=== PATIENT | female | born 1955 | race Caucasian/White ===

== ENCOUNTER 2017-08-07 12:12 | Emergency (ER) | payer BC ==
[~2017-08-07] VITALS: Ht 162.6 cm; Wt 97.1 kg
[2017-08-07 12:26] VITALS: BP 156/81
--- NOTE | 2017-08-07 12:31 | NUR ---
PT AMBULATED TO BED 11
--- NOTE | 2017-08-07 12:38 | NUR ---
REPORT GIVEN TO FREDDIE DEVINE
--- NOTE | 2017-08-07 12:40 | NUR ---
61 YO F WITH C/O INTERMITTIN HEADACHE X4 DAYS. +V/N, +LIGHT SENSITIVITY. PAIN 7/10 PRESSURE IN HEAD. PT STATES MILD EPIGASTRIC PAIN. BS ACTIVE X4. PT STATS SOB LAST NIGHT, LS CLEAR. PT TOOK X2 IMITREX, AND 1/2 TAB 5MG NORCO BEFORE ARRIVAL. DR VOGT MADE AWARE,WILL CONTINUE TO MONITOR
--- NOTE | 2017-08-07 12:45 | NUR ---
Patient being evaluated by physician at bedside.
[2017-08-07] MEDS ORDERED: KETOROLAC 60 MG/2 ML VIAL IM ONE (12:55)
[2017-08-07] MEDS ORDERED: METOCLOPRAMIDE 10 MG/2 ML INJ VIAL IM ONE (12:55)
--- NOTE | 2017-08-07 13:14 | NUR ---
MEDICATED ORDERED, WILL MONITOR FOR ANY ADVERSE SIDE EFFECTS.
[2017-08-07 13:44] VITALS: BP 149/74
--- NOTE | 2017-08-07 13:46 | NUR ---
Patient discharged with v/s stable. Written and verbal after care instructions given and explained. Patient alert, oriented and verbalized understanding of instructions. Ambulatory with steady gait. All questions addressed prior to discharge. ID band removed. Patient advised to follow up with PMD. Rx of REGLAN given. Patient educated on indication of medication including possible reaction and side effects. Opportunity to ask questions provided and answered.
== END 2017-08-07 13:46 | disposition home or self-care (01) ==
LOC: MED 12:12
DX: G43.909 Migraine, unspecified, not intractable, without status migrainosus (principal); E11.9 Type 2 diabetes mellitus without complications; I10 Essential (primary) hypertension; Z79.4 Long term (current) use of insulin; Z88.0 Allergy status to penicillin
CPT/HCPCS: 96372; 99284; J1885; J2765